=== PATIENT | female | born 1970 | race Caucasian/White ===

== ENCOUNTER 2017-05-12 00:12 | Emergency (ER) | payer OTHER ==
[~2017-05-12] VITALS: Ht 165.1 cm; Wt 60.0 kg
[2017-05-12 00:20] VITALS: BP 107/62; PULSE 94; RESP 18; TEMP 99.2; O2SAT 100
[2017-05-12] MEDS ORDERED: KEPP10002 PO ×2 (00:28→00:29)
[2017-05-12] MEDS ORDERED: ZONE100C4 PO (00:29)
[2017-05-12 00:56] VITALS: O2SAT 100
--- NOTE | 2017-05-12 01:09 | PD ---
HPI Chief Complaint: Seizure Time Seen by Provider: 00:42 Travel History International Travel<30 days: No Contact w/Intl Traveler<30days: No Traveled to known affect area: No History of Present Illness HPI The patient is a 46 year old female who presents to the [facility] emergency department with a history of seizure activity that occurred prior to arrival. The patient had a 1 minute generalized tonic-clonic seizure. The patient reports that she does have a history of seizure disorder. She is followed by for her neurologic care. She reports that a few months ago her Zonegran dose was increased due to recurrent seizure activity. She reports that every few months she's been having a seizure recently. She reports that prior to August she had not had a seizure for 4 years. For worsening seizure activity is thought to possibly be related to hormone changes as well as difficulty sleeping. She reports that through the weekend she did have difficulty sleeping. He has been taking her Zonegran and her Keppra as prescribed. The patient reports at this time she has nausea, without vomiting. She does report having a generalized headache. She reports that she usually gets a headache after her seizure activity. She reports that this is not a new headache. She reports that it is similar to her prior headaches. She denies hitting her head according to her coworker at the bedside. The patient was eased to the floor by a coworker. On review of systems, the patient denies any recent fevers, cough, congestion, neck pain, chest pain, shortness of breath, abdominal pain, vomiting, diarrhea, urinary symptoms, or other neurologic symptoms. ON LICENSE OF [facility] Past Medical History Narrative Medical The patient's past medical history is significant for seizure disorder diagnosed 30 years ago. She reports that she did have a stimulator implant placed for her seizures in 2006, however the seizures became worse. She reports that they let the battery wearout, therefore the implant is no longer effective. Diminished Hearing: No Seizures: Yes Tetanus Vaccination: < 5 Years Influenza Vaccination: No ?: Not LMP: 05/05/2017 Tubal Ligation: Yes Past Surgical History Narrative Surgical The patient's past surgical history is significant for bilateral tubal ligation , VNS implant for seizures. Section: Yes Other Surgery: Yes (VNS inplant) Social History Alcohol Use: Yes (occasionally) Tobacco Use: No Substance Use: No Allergies-Medications (Allergen,Severity, Reaction): Coded Allergies: No Known Allergies (Unverified , 05/12/17) Reported Meds & Prescriptions Reported Meds & Active Scripts Active Calcium Gluconate 45 Mg Calcium (500 Mg) Tab 500 Mg PO BID 30 Days 1 gram of salt is 93 mg elemental calcium. Reported Zonegran (Zonisamide) 100 Mg Cap 400 Mg PO DAILY Keppra (Levetiracetam) 1,000 Mg Tab 1,500 Mg PO HS Keppra (Levetiracetam) 1,000 Mg Tab 1,000 Mg PO DAILY NEB Review of Systems Except as stated in HPI: all other systems reviewed are Neg General / Constitutional: No: Fever Eyes: No: Visual changes HENT: Positive: Headaches, No: Neck Stiffness, Neck Pain Cardiovascular: No: Chest Pain or Discomfort Respiratory: No: Shortness of Breath Gastrointestinal: Positive: Nausea, No: Vomiting, Diarrhea, Abdominal Pain Genitourinary: No: Dysuria Musculoskeletal: No: Pain Skin: No Rash Neurologic: Positive: Headache, Seizures, No: Weakness, Focal Abnormalities, Change in Mentation, Slurred Speech, Sensory Disturbance Psychiatric: No: Depression Endocrine: No: Polydipsia Hematologic/Lymphatic: No: Easy Bruising Physical Exam Narrative General: The patient is a well-developed well-nourished female in no acute distress. Head and Neck exam: Head is normocephalic atraumatic. Eyes: EOMI, pupils are equal round and reactive to light. Nose: Midline septum with pink mucous membranes Mouth: Dentition unremarkable. Moist mucus membranes. Posterior oropharynx is not erythematous. No tonsillar hypertrophy. Uvula midline. Airway patent. Neck: No palpable lymphadenopathy. No nuchal rigidity. No thyromegaly. No spinous process tenderness to palpation. No step-off or crepitus. No erythema or ecchymosis. Cardiovascular: Regular rate and rhythm without murmurs, gallops, or rubs. Lungs: Clear to auscultation bilaterally. No wheezes, rhonchi, or rales. Abdomen: Soft, without tenderness to palpation in all 4 quadrants of the abdomen. No guarding, rebound, or rigidity. Normal bowel sounds are audible. No tenderness on palpation of McBurney's point. Extremities: No clubbing, cyanosis, or edema. 2+ pulses in all 4 extremities. Back: No spinous process tenderness to palpation. No costovertebral angle tenderness to palpation. Neurologic Exam: Cranial nerves 2-12 were intact on exam. Strength is 5/5 in all 4 extremities. No sensory deficits noted. Skin Exam: No rash noted. Intact skin that is warm and dry. Data Data Last Documented VS Vital Signs Date Time Temp Pulse Resp B/P (MAP) Pulse Ox O2 Delivery O2 Flow Rate FiO2 05/12/17 00:56 100 Room Air 05/12/17 00:20 99.2 94 18 107/62 (77) Orders Orders Complete Blood Count With Diff (05/12/17 00:44) Comprehensive Metabolic Panel (05/12/17 00:44) Prothrombin Time / Inr (Pt) (05/12/17 00:44) Act Partial Throm Time (Ptt) (05/12/17 00:44) Urinalysis - C+S If Indicated (05/12/17 00:44) Magnesium (Mg) (05/12/17 00:44) Iv Access Insert/Monitor (05/12/17 00:44) Ecg Monitoring (05/12/17 00:44) Oximetry (05/12/17 00:44) Hydromorphone Pf Inj (Dilaudid Pf Inj) (05/12/17 01:15) Prochlorperazine Inj (Compazine Inj) (05/12/17 01:15) Sodium Chlorid 0.9% 500 Ml Inj (Ns 500 M (05/12/17 01:15) Ct Brain W/O Iv Contrast(Rout) (05/12/17 01:11) Ed Urine Pregnancytest Poc (05/12/17 01:11) Calcium Gluconate Inj (Calcium Gluconate (05/12/17 02:15) Sodium Chlorid 0.9% 500 Ml Inj (Ns 500 M (05/12/17 02:30) Labs Laboratory Tests Test 05/12/17 01:02 White Blood Count 9.0 TH/MM3 Red Blood Count 3.63 MIL/MM3 Hemoglobin 10.6 GM/DL Hematocrit 32.3 % Mean Corpuscular Volume 88.8 FL Mean Corpuscular Hemoglobin 29.2 PG Mean Corpuscular Hemoglobin Concent 32.9 % Red Cell Distribution Width 13.7 % Platelet Count 254 TH/MM3 Mean Platelet Volume 7.2 FL Neutrophils (%) (Auto) 85.1 % Lymphocytes (%) (Auto) 7.7 % Monocytes (%) (Auto) 6.3 % Eosinophils (%) (Auto) 0.4 % Basophils (%) (Auto) 0.5 % Neutrophils # (Auto) 7.6 TH/MM3 Lymphocytes # (Auto) 0.7 TH/MM3 Monocytes # (Auto) 0.6 TH/MM3 Eosinophils # (Auto) 0.0 TH/MM3 Basophils # (Auto) 0.0 TH/MM3 CBC Comment DIFF FINAL Differential Comment Prothrombin Time 10.7 SEC Prothromb Time International Ratio 1.0 RATIO Activated Partial Thromboplast Time 24.1 SEC Blood Urea Nitrogen 16 MG/DL Creatinine 0.87 MG/DL Random Glucose 84 MG/DL Total Protein 6.2 GM/DL Albumin 3.3 GM/DL Calcium Level 7.2 MG/DL Magnesium Level 1.8 MG/DL Alkaline Phosphatase 50 U/L Aspartate Amino Transf (AST/SGOT) 15 U/L Alanine Aminotransferase (ALT/SGPT) 15 U/L Total Bilirubin 0.2 MG/DL Sodium Level 141 MEQ/L Potassium Level 3.7 MEQ/L Chloride Level 112 MEQ/L Carbon Dioxide Level 21.5 MEQ/L Anion Gap 8 MEQ/L Estimat Glomerular Filtration Rate 71 ML/MIN Protein Corrected Calcium 7.7 MG/DL MDM Medical Decision Making Medical Screen Exam Complete: Yes Emergency Medical Condition: Yes Medical Record Reviewed: Yes Interpretation(s) Last Impressions Head CT 05/12/17 0111 Signed Impressions: Service Date/Time: Friday, May 12, 2017 01:35 - CONCLUSION: No acute abnormality demonstrated. Mp Hollins MD Differential Diagnosis Intracranial hemorrhage, versus intracranial mass, versus lowered seizure threshold related to insomnia, versus electrolyte abnormality Narrative Course During the course of the patients emergency department visit, the patients history, examination, and differential diagnosis were reviewed with the patient. The patient had IV access obtained and blood work sent for analysis. The patient was placed on a herbicide sprayer with oximetry and blood pressure monitoring. A CT scan of the brain was ordered. The patient was initially provided hydromorphone 0.5 mg IV, Compazine 5 mg IV, normal saline a 500 mL bolus which was repeated 1. The patients laboratory studies were reviewed and remarkable for a white count of 9, hemoglobin 10.6, platelets 254 with 85.1 neutrophils, lymphocytes 7.7. CMP is remarkable for chloride of 112, GFR 71, protein corrected calcium 7.7, albumin 3.3 Radiology studies were reviewed and remarkable for a CT scan of the brain that shows no acute abnormality. The patient was given calcium gluconate 1 g IV over one hour. The patient will be given a calcium gluconate supplement to be continued. The patient was instructed to have her calcium rechecked. The patient reports that she is going to have a scheduled appointment with her neurologist for follow-up soon. She is instructed to notify her neurologist in the morning regarding this emergency department visit and the recurrent seizure activity to discuss changes in her regimen. The patient is resting comfortably and feels better, is alert and in no distress. The patients results and examination findings were discussed with the patient. The repeat examination is unremarkable and benign. The history, exam, diagnostic testing, and current condition do not suggest any significant pathology to warrant further testing, continued ED treatment, admission, or surgical evaluation at this point. The vital signs have been stable. The patient does not have uncontrollable pain, intractable vomiting, or other significant symptoms. The patient's condition is stable and appropriate for discharge. The patient will pursue further outpatient evaluation with a primary care physician or other designated or consulting physician as indicated in the discharge instructions. The patient expressed understanding and was agreeable with this plan. Diagnosis Primary Impression: Seizure disorder Additional Impression: Hypocalcemia Referrals: Neurologist 1 day Primary Care Physician 2 days Patient Instructions: General Instructions, Generalized Tonic Clonic Seizures ( ED), Hypocalcemia (ED) Med/Other Pt SpecificInfo: Prescription(s) given Scripts Calcium Gluconate (Calcium Gluconate) 45 Mg Calcium (500 Mg) Tab 500 MG PO BID for Calcium Supplement for 30 Days, TAB 0 Refills 1 gram of salt is 93 mg elemental calcium. Prov: Clarita Vernon MD 05/12/17 Disposition: 01 DISCHARGE HOME Condition: Stable Clarita Vernon MD May 12, 2017 01:09
[2017-05-12] MEDS ORDERED: PROCHLORPERAZINE INJ 10 MG/2 ML VIAL IV PUSH ONE (01:15)
[2017-05-12] MEDS ORDERED: SODIUM CHLORID 0.9% 500 ML INJ 500 ML IV ONE ×2 (01:15→02:30)
[2017-05-12] MEDS ORDERED: HYDROmorphone HCL PF 1 MG/ML VIAL IV PUSH ONE (01:15)
[2017-05-12 01:16] LABS: AUTOMATED NEUTROPHIL # 7.6 TH/MM3 (1.8-7.7); BASOPHIL % 0.5 % (0.0-2.0); EOSINOPHIL % 0.4 % (0.0-4.0); HEMATOCRIT 32.3 % (35.0-46.0); HEMO FLAGS DIFF FINAL; LYMPH % 7.7 % (9.0-44.0); LYMPHOCYTE # 0.7 TH/MM3 (1.0-4.8); MEAN CELL VOLUME 88.8 FL (80.0-100.0); MEAN CORPUSCULAR HEMOGLOBIN 29.2 PG (27.0-34.0); MEAN CORPUSCULAR HGB CONC 32.9 % (32.0-36.0); MONO % 6.3 % (0.0-8.0); NEUT % 85.1 % (16.0-70.0); PLATELET COUNT 254 TH/MM3 (150-450); RED BLOOD COUNT 3.63 MIL/MM3 (4.00-5.30); RED CELL DISTRIBUTION WIDTH 13.7 % (11.6-17.2)
[2017-05-12 01:21] LABS: APTT (PATIENT) 24.1 SEC (24.3-30.1); PROTHROMBIN TIME - PATIENT 10.7 SEC (9.8-11.6)
[2017-05-12 01:29] LABS: BICARBONATE 21.5 MEQ/L (21.0-32.0); CALCIUM-PROTEIN CORRECTED 7.7 MG/DL (8.5-10.1); MAGNESIUM 1.8 MG/DL (1.5-2.5); POTASSIUM 3.7 MEQ/L (3.5-5.1); TOTAL BILIRUBIN ADULT 0.2 MG/DL (0.2-1.0)
--- NOTE | 2017-05-12 01:59 | RADRPT ---
EXAM DATE/TIME: 05/12/2017 01:35 [facility] COMPARISON: No previous studies available for comparison. INDICATIONS : Seizure. RADIATION DOSE: 56.35 CTDIvol (mGy) MEDICAL HISTORY : Seizures. SURGICAL HISTORY : Tubal ligation. section. ENCOUNTER: Initial ACUITY: 1 day PAIN SCALE: 8/10 LOCATION: cranial TECHNIQUE: Multiple contiguous axial images were obtained of the head. Using automated exposure control and adj ustment of the mA and/or kV according to patient size, radiation dose was kept as low as reasonably a chievable to obtain optimal diagnostic quality images. DICOM format image data is available electro nically for review and comparison. FINDINGS: CEREBRUM: The ventricles are normal for age. No evidence of midline shift, mass lesion, hemorrhage or acute in farction. No extra-axial fluid collections are seen. POSTERIOR FOSSA: The cerebellum and brainstem are intact. The 4th ventricle is midline. The cerebellopontine angle i s unremarkable. EXTRACRANIAL: The visualized portion of the orbits is intact. SKULL: The calvaria is intact. No evidence of skull fracture. CONCLUSION: No acute abnormality demonstrated. Mp Hollins MD on May 12, 2017 at 1:57 Board Certified Radiologist. This report was verified electronically.
[2017-05-12] MEDS ORDERED: CALG500 PO (02:10)
[2017-05-12] MEDS ORDERED: CALCIUM GLUCONATE INJ 1 GM in DEXTROSE 5% IN WATER 100ML INJ 100 ML IV ONE ×2 (02:15)
== END 2017-05-12 03:56 | disposition home or self-care (01) ==
LOC: NEPE 00:12
DX: G40.409 Other generalized epilepsy and epileptic syndromes, not intractable, without status epilepticus (principal); E83.51 Hypocalcemia; R51 Headache
CPT/HCPCS: 70450; 80053; 83735; 84703; 85025; 85610; 85730; 96361; 96365; 96375; 99285; J0610; J0780; J1170; J7040